=== PATIENT | male | born 1955 | race Caucasian/White ===

== ENCOUNTER 2017-12-26 12:51 | Day surgery (SDC) | payer SELFPAY ==
[2017-12-25 16:46] VITALS: BMI 26.3
[2017-12-26] MEDS ORDERED: fentaNYL CITRATE 250 MCG/5 ML VIAL ONE (15:18)
[2017-12-26] MEDS ORDERED: DEXAMETHASONE SOD PHOSPHATE 4 MG/1 ML VIAL ONE (15:18)
[2017-12-26] MEDS ORDERED: MIDAZOLAM HCL 2 MG/2 ML SINGLE DOSE VIAL ONE (15:18)
[2017-12-26] MEDS ORDERED: PROPOFOL 20 ML ONE (15:18)
[2017-12-26] MEDS ORDERED: ceFAZolin SODIUM 1 GM VIAL ONE (15:50)
[2017-12-26] MEDS ORDERED: ceFAZolin SODIUM 1 GM VIAL IVPB ONE (15:50)
[2017-12-26] MEDS ORDERED: LIDOCAINE HCL 2% (20ML MULTI-DOSE VIAL) NR ONE (15:58)
[2017-12-26] MEDS ORDERED: EPINEPHrine/PF 1 MG/1 ML (1:1,000) AMPULE ONE (15:58)
[2017-12-26] MEDS ORDERED: oxyCODONE HCL 5 MG TABLET PO PRN ×3 (18:05→18:18)
[2017-12-26] MEDS ORDERED: ONDANSETRON 4 MG/2 ML VIAL IVPUSH PRN (18:05)
[2017-12-26] MEDS ORDERED: LACTATED RINGERS SOLUTION 1,000 ML IV SCH ×2 (18:15→18:30)
[2017-12-26] MEDS ORDERED: ONDANSETRON 4 MG/2 ML VIAL IVPB PRN (18:18)
[2017-12-26 19:26] VITALS: TEMP 98.2
[2017-12-26 20:17] VITALS: BP 146/89; PULSE 98
--- NOTE | 2017-12-27 10:45 | OP ---
DATE OF OPERATION: 12/26/2017 TITLE OF PROCEDURE: Bilateral male breast reduction with liposuction and direct glandular excision for bilateral gynecomastia. PREOPERATIVE DIAGNOSIS: Bilateral gynecomastia. POSTOPERATIVE DIAGNOSIS: Bilateral gynecomastia. Patient is counseled at length of all risks, benefits and alternatives to this procedure, including, but not limited to, the unpredictability of skin retraction with a nonskin excision technique, possible dissatisfaction, bleeding, infection and tissue loss as well as sensory changes. He understands all this, agrees to proceed. A gram of Ancef is given preoperatively. He is marked, aware of incisions and all resulting scars. He is additionally brought to the operating room and placed in the supine position while awake, comfortable. Position is carefully checked by surgical and anesthesia teams. He is prepped and draped in standard surgical fashion. Timeout called. Patient, procedure, side, sites are verified. At this point, the marked incision points along the inframammary fold as well as in the inferior periareolar skin are made through which a wetting solution is infiltrated. The wetting solution is a liter of normal saline with 1 ampule of 1:1000 epinephrine and 20 mL of 1% lidocaine plain. A total of 600 mL of wetting solution is infiltrated into each breast as well as across the inframammary fold on to the upper abdomen. A full 20 minutes is awaited for hemostatic effect. At this point, the SAFE technique of liposuction is performed with pre and post tunneling is done. Pretunneling is performed for fat separation with the basket-tip cannula. Liposuction is performed with 3-mm cannulas. After this is completed, the liposuction performed on both sides. A total of 250 mL of lipoaspirate is achieved on each side. The endpoint is smooth even contour by visualization and pinch test. Patient is brought to a seated upright position with all extremities secured where the decision is made for a roney-retroareolar glandular excision as well. The glandular excision is performed as follows: The infraareolar periareolar incision is made through which under direct vision the areolar is released from its fibrous attachments and the underlying disk of glandular tissue is excised using facelift scissors. The fat is well mobilized and no suture techniques are required. The patient's skin is tailor tacked. Patient is then brought to a seated upright position again where the skin is redraping well. It is noted that the inframammary fold is entirely released using the SAFE technique of liposuction as well as direct division of any tethering points. All tissues appear healthy and viable. The liposuction portals are closed with a series of interrupted 5-0 nylon suture. These include 1 in each inframammary fold and 1 in the left axilla. The periareolar incisions are closed with a series of interrupted buried deep dermal 5-0 Monocryl suture followed by a running subcuticular 5-0 Monocryl suture and several interrupted 5-0 nylon sutures. Incisions are dressed with Steri-Strips. A compressive Trevor wrap and a compressive garment are applied. Patient awoken from anesthesia, transferred to recovery without complication. ELIDIA BA M.D. [id number]
--- NOTE | 2017-12-28 18:16 | PATH ---
Surgical Pathology Report Patient Name: DELFINO [facility]SE [facility]. Rec. #: [id number] /Age/Gender: 1955 (Age: 62) / M Account: [id number] Location: [facility] SURGICAL Taken: 12/26/2017 Received: 12/27/2017 Reported: 12/28/2017 Physicians: Chevy Brennan Specimen(s) Received A: BILATERAL BREAST LIPOSUCTION B: RIGHT BREAST TISSUE C: LEFT BREAST TISSUE Clinical History Hypertrophy of bilateral breast, gynecomastia Final Diagnosis A. BREAST, BILATERAL, LIPOSUCTION: BLOOD AND ADIPOSE TISSUE. MACROSCOPIC DIAGNOSIS. B. BREAST, RIGHT, TISSUE, EXCISION: BENIGN BREAST TISSUE. C. BREAST, LEFT, TISSUE, EXCISION: BENIGN BREAST TISSUE. Electronically Signed Trista Shipman M.D. Gross Description A. Received fresh in a liposuction container labeled "bilateral breast liposuction," is approximately 600 mL of fat and blood. No sections are submitted, gross only. B. Received in formalin labeled "right breast tissue," is a 4 g, 3.0 x 2.2 x 1.2 cm aggregate of harris-yellow portions of fibroadipose tissue. Sectioning reveals foci of white fibrous tissue. No definitive masses are identified. [employer] sections are submitted in one cassette. C. Received in formalin labeled "left breast tissue," is a 5 g, 4.3 x 3.5 x 1.0 cm aggregate of harris-yellow, irregular portions of fibroadipose tissue. Sectioning reveals foci of white fibrous tissue. No definitive masses are identified. [employer] Consult[employer] sections are submitted in one cassette. /12/27/2017 [facility]
== END 2017-12-26 20:17 | disposition home or self-care (01) ==
LOC: JASU-SURG 12:51
PROVIDERS: ATTEND Plastic Surgery
PROC: 0H0V3ZZ Alteration of Bilateral Breast, Percutaneous Approach (ICD-10-PCS; 2017-12-26)
PROC: 0H0V0ZZ Alteration of Bilateral Breast, Open Approach (ICD-10-PCS; principal; 2017-12-26 14:30)
DX: N62 Hypertrophy of breast (principal)
CPT/HCPCS: 88300-TC; 88305-TC; 94760